=== PATIENT | male | born 1990 | race Caucasian/White ===

== ENCOUNTER 2016-05-30 10:31 | Emergency (ER) | payer OTHER ==
[~2016-05-30] VITALS: Ht 175.3 cm; Wt 70.0 kg
[2016-05-30 10:40] VITALS: BP 121/80; PULSE 83; RESP 17; TEMP 97.7; O2SAT 95
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
[2016-05-30] MEDS ORDERED: ACETAMINOPHEN/HYDROcodone 325 MG/5 MG TAB PO ONE (11:00)
[2016-05-30] MEDS ORDERED: NORC5TAB PO (13:12)
[2016-05-30] MEDS ORDERED: CEPH-460 PO (13:12)
[2016-05-30] MEDS ORDERED: IBUP-232 PO (13:12)
== END 2016-05-30 13:30 | disposition home or self-care (01) ==
LOC: NEPA 10:31
DX: S60.512A Abrasion of left hand, initial encounter (principal); S60.511A Abrasion of right hand, initial encounter; S30.811A Abrasion of abdominal wall, initial encounter; S30.810A Abrasion of lower back and pelvis, initial encounter; S90.512A Abrasion, left ankle, initial encounter; S80.212A Abrasion, left knee, initial encounter; V28.4XXA Motorcycle driver injured in noncollision transport accident in traffic accident, initial encounter; Y93.89 Activity, other specified; Y92.410 Unspecified street and highway as the place of occurrence of the external cause; Y99.8 Other external cause status
CPT/HCPCS: 99284

== ENCOUNTER 2016-05-30 19:36 | Emergency (ER) | payer OTHER ==
[~2016-05-30 19:36] MED LIST: CEPH-460 PO; IBUP-232 PO; NORC5TAB PO
[2016-05-30 19:37] VITALS: BP 197/98; PULSE 109; RESP 18; TEMP 98.5; O2SAT 98
== END 2016-05-30 19:40 | disposition left against medical advice (07) ==
LOC: NED 19:36
DX: R68.89 Other general symptoms and signs (principal)
CPT/HCPCS: 99281

== ENCOUNTER 2016-07-14 08:37 | Emergency (ER) | payer OTHER ==
[~2016-07-14] VITALS: Ht 175.3 cm; Wt 68.0 kg
[2016-07-14 08:40] VITALS: BP 129/67; PULSE 78; RESP 15; TEMP 98.2; O2SAT 99
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
[2016-07-14 10:01] LABS: BICARBONATE 29.8 MEQ/L (21.0-32.0); POTASSIUM 4.1 MEQ/L (3.5-5.1)
[2016-07-14] MEDS ORDERED: GADODIAMIDE PF 287 MG/ML 5 ML VIAL (for RAD MRI) IV ONE (10:43)
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
[2016-07-14] MEDS ORDERED: CLIN1CAP6 PO (12:19)
== END 2016-07-14 13:00 | disposition left against medical advice (07) ==
LOC: NEPK 08:37
DX: M71.121 Other infective bursitis, right elbow (principal); L03.113 Cellulitis of right upper limb
CPT/HCPCS: 73223; 80048; 99284; A9579

== ENCOUNTER 2016-07-15 14:15 | Observation (INO) | payer SELFPAY ==
[~2016-07-15] VITALS: Ht 175.3 cm; Wt 68.0 kg
[~2016-07-15 14:15] MED LIST changes: -CEPH-460 PO; +CLIN1CAP6 PO; -IBUP-232 PO; -NORC5TAB PO
[2016-07-15 14:17] VITALS: BP 135/65; PULSE 88; RESP 15; TEMP 98.7; O2SAT 96
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
[2016-07-15] MEDS ORDERED: SODIUM CHLOR 0.9% 1000 ML INJ 1,000 ML IV SCH (15:44)
[2016-07-15] MEDS ORDERED: SODIUM CHLORIDE 0.9% FLUSH 10 ML FLUSH IV FLUSH PRN ×2 (15:45→17:00)
[2016-07-15] MEDS ORDERED: VANCOMYCIN INJ 1,000 MG in SODIUM CHLOR 0.9% 250 ML INJ 250 ML IV ONE (15:45)
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
[2016-07-15 16:29] LABS: AUTOMATED NEUTROPHIL # 6.7 TH/MM3 (1.8-7.7); BASOPHIL # 0.1 TH/MM3 (0-0.2); BASOPHIL % 0.5 % (0.0-2.0); EOSINOPHIL # 0.1 TH/MM3 (0-0.4); EOSINOPHIL % 1.5 % (0.0-4.0); HEMATOCRIT 39.6 % (39.0-51.0); HEMO FLAGS DIFF FINAL; LYMPH % 20.3 % (9.0-44.0); MEAN CELL VOLUME 88.6 FL (80.0-100.0); MEAN CORPUSCULAR HEMOGLOBIN 30.4 PG (27.0-34.0); MEAN CORPUSCULAR HGB CONC 34.4 % (32.0-36.0); MONO % 9.8 % (0.0-8.0); NEUT % 67.9 % (16.0-70.0); PLATELET COUNT 291 TH/MM3 (150-450); RED BLOOD COUNT 4.47 MIL/MM3 (4.50-5.90); RED CELL DISTRIBUTION WIDTH 13.6 % (11.6-17.2); WHITE BLOOD COUNT 9.8 TH/MM3 (4.0-11.0)
[2016-07-15] MEDS ORDERED: LIDOCAINE 1%/EPINEPHrine 1:100,000 SOLN 20 ML VIAL INFIL ONE (16:30)
[2016-07-15 16:38] LABS: APTT (PATIENT) 28.9 SEC (24.3-30.1)
[2016-07-15 16:50] LABS: BICARBONATE 29.3 MEQ/L (21.0-32.0); POTASSIUM 3.9 MEQ/L (3.5-5.1)
[2016-07-15] MEDS ORDERED: MAGNESIUM HYDROXIDE SUSP 30 ML CUP PO PRN (17:00)
[2016-07-15] MEDS ORDERED: NALOXONE HCL 0.4 MG/ML AMP IV PRN (17:00)
[2016-07-15] MEDS ORDERED: TEMAZEPAM 15 MG CAP PO PRN (17:00)
[2016-07-15] MEDS ORDERED: ONDANSETRON HCL 4 MG/2 ML VIAL IVP PRN (17:00)
[2016-07-15] MEDS ORDERED: ACETAMINOPHEN 325 MG TAB PO PRN (17:00)
[2016-07-15] MEDS ORDERED: ACETAMINOPHEN/HYDROcodone 325 MG/7.5 MG TAB PO PRN (17:15)
[2016-07-15] MEDS ORDERED: IBUPROFEN 400 MG TAB PO PRN (17:15)
[2016-07-15 18:13] LABS: WBC, SYNOVIAL FLUID 79500 /MM3 (0-200)
[2016-07-15 18:22] VITALS: BP 125/70; PULSE 85; RESP 16; O2SAT 98
--- NOTE | 2016-07-15 19:41 | PD.AMA ---
Against Medical Advice Note Discharge Disposition: Against Medical Advice AMA Statement Patient Darell Leigh has decided to leave the hospital against medical advice. This patient has the capacity to refuse care and understands the risks of leaving, including permanent disability and/or , and has had an opportunity to ask questions about his condition. The patient has been informed that he may return to the ED at any time for further treatment. Jodi Cm MD R2 July 15, 2016 19:41
[2016-07-15] MEDS ORDERED: SODIUM CHLORIDE 0.9% FLUSH 10 ML FLUSH IV FLUSH SCH (21:00)
[2016-07-15] MEDS ORDERED: CLINDAMYCIN INJ 600 MG in SODIUM CHLORIDE 0.9% INJ 100 ML IV SCH (22:00)
--- NOTE | 2016-07-16 11:56 | HHI.FPPN ---
Addendum to progress note ADDENDUM Reason for addendum: Additonal documentation Additional information Attempted to call patient to inform him of gram-positive cocci from bursa aspiration but patient's phone is disconnected. I also attempted to call patient's mother but I received a voicemail stating the user was unavailable and I was unable to leave a message. Sensitivities are not back and will likely result tomorrow. Spoke with [facility] and asked them to page the medical team once the sensitivities results. Patient does have clindamycin which will hopefully provide enough coverage. Jodi Cm MD R2 July 16, 2016 11:56
== END 2016-07-15 19:55 | disposition left against medical advice (07) ==
LOC: NEPE 14:15 → NEDA 16:29 → N07B 18:54
PROVIDERS: ADMIT Family Medicine; ATTEND Family Medicine
DX: M71.121 Other infective bursitis, right elbow (principal); B96.89 Other specified bacterial agents as the cause of diseases classified elsewhere; F17.200 Nicotine dependence, unspecified, uncomplicated
CPT/HCPCS: 10060; 80048; 84157; 85025; 85610; 85730; 86403; 87070; 87186; 87205; 89051; 89060; 96360; 99284; G0378; J3370; J7030; J7050